=== PATIENT | male | born 1990 | race Caucasian/White ===

== ENCOUNTER 2020-10-03 20:48 | Emergency (ER) | payer OTHER ==
[~2020-10-03] VITALS: Ht 188 cm; Wt 120.0 kg
--- NOTE | 2020-10-03 20:59 | PHYS DOC ---
Adult General Chief Complaint Chief Complaint: KNEE INJURY HPI HPI This is a pleasant 30-year-old male with a history of knee injury some years ago from a fall present to the emergency department complaint of right knee pain. Patient states that he started noticing right knee pain 1.5 weeks ago following a hiking. Patient states that he has been caring additional weights to carry backpack as well as baby strap to carry the baby during hiking. This has taken a toll on his right knee. He is having increasing pain to his right knee. Pain is sharp and achy in nature. At times it catches and clicks. He would prefer to use elevator over stairs as it will cause significant pain walking up. Flexion of the knee causes additional pain. However he is able to bend his knee completely. Patient has seen at the urgent care last Wednesday about 4 days ago. He had an x-ray done which was negative for any fracture. Patient also reports that his pain is better in the morning. It is worse after activity and exercise. Review of Systems Review of Systems Constitutional: Denies fever or chills [] Eyes: Denies change in visual acuity, redness, or eye pain [] HENT: Denies nasal congestion or sore throat [] Respiratory: Denies cough or shortness of breath [] Cardiovascular: No additional information not addressed in HPI [] GI: Denies abdominal pain, nausea, vomiting, bloody stools or diarrhea [] : Denies dysuria or hematuria [] Musculoskeletal: Right knee pain Integument: Denies rash or skin lesions [] Neurologic: Denies headache, focal weakness or sensory changes [] Endocrine: Denies polyuria or polydipsia [] All other systems were reviewed and found to be within normal limits, except as documented in this note. Physical Exam Physical Exam Constitutional: Well developed, well nourished, no acute distress, non-toxic appearance. [] HENT: Normocephalic, atraumatic, bilateral external ears normal, oropharynx moist, no oral exudates, nose normal. [] Eyes: PERRLA, EOMI, conjunctiva normal, no discharge. [] Neck: Normal range of motion, no tenderness, supple, no stridor. [] Cardiovascular:Heart rate regular rhythm, no murmur [] Lungs & Thorax: Bilateral breath sounds clear to auscultation [] Abdomen: Bowel sounds normal, soft, no tenderness, no masses, no pulsatile masses. [] Skin: Warm, dry, no erythema, no rash. [] Back: No tenderness, no CVA tenderness. [] Extremities: Minimal tenderness upon palpation over the right anterior medial joint line. Flexion extension. However, patient feels something catching/locking during flexion extension. Suspect meniscal/ligamentous injury. Neurologic: Alert and oriented X 3, normal motor function, normal sensory function, no focal deficits noted. [] Psychologic: Affect normal, judgement normal, mood normal. [] EKG EKG [] Radiology/Procedures Radiology/Procedures [] Heart Score C/O Chest Pain: N/A Risk Factors: Risk Factors: DM, Current or recent (<one month) smoker, HTN, HLP, family history of CAD, obesity. Risk Scores: Risk Factors: DM, Current or recent (<one month) smoker, HTN, HLP, family history of CAD, obesity. Course & Med Decision Making Course & Med Decision Making Since patient had studies done at the urgent care knee x-ray, this was deferred. Discussed at length patient about the treatment options. The following is the instruction that was given to the patient: Your right knee pain likely secondary to meniscal injury particularly anterior horn of the right medial meniscus. You likely also have ligamentous injury. MRI is superior chest to determine soft tissue problems. Please see your primary care provider for further evaluation particularly for physical therapy and possible need for MRI. You may apply warm compression for comfort and soothing. You likely will need physical therapy with your primary care provider take your anti-inflammatory and muscle relaxer as prescribed. Minimize over activity or over usage to the right knee. May use knee immobilizer/knee brace during heavy ambulation and may use Silverio wrap to the right knee during light ambulation. Dragon Disclaimer Dragon Disclaimer This electronic medical record was generated, in whole or in part, using a voice recognition dictation system. Departure Departure: Impression: Primary Impression: Mechanical pain of right knee Disposition: 07 LEFT AWOL/ELOPED Admitting Physician: Other Condition: GOOD Referrals: MARISA URBINA-KATINA (PCP) Patient Instructions: Combined Knee Ligament Sprain-SportsMed Additional Instructions: Your right knee pain likely secondary to meniscal injury particularly anterior horn of the right medial meniscus. You likely also have ligamentous injury. MRI is superior chest to determine soft tissue problems. Please see your primary care provider for further evaluation particularly for physical therapy and possible need for MRI. You may apply warm compression for comfort and soothing. You likely will need physical therapy with your primary care provider take your anti-inflammatory and muscle relaxer as prescribed. Minimize over activity or over usage to the right knee. May use knee immobilizer/knee brace during heavy ambulation and may use Silverio wrap to the right knee during light ambulation. Scripts Cyclobenzaprine Hcl (CYCLOBENZAPRINE HCL) 5 Mg Tablet 1 TAB PO TID for pain for 10 Days, #30 TAB Prov: JANAK VACA MD 10/03/20 Naproxen (NAPROXEN) 500 Mg Tablet 1 TAB PO BID for pain for 20 Days, #40 TAB 0 Refills Prov: JANAK VACA MD 10/03/20 JANAK VACA MD Oct 03, 2020 20:59
[2020-10-03] MEDS ORDERED: CYCL5TAB PO (23:03)
[2020-10-03] MEDS ORDERED: NAPR-514 PO (23:03)
[2020-10-03 23:13] VITALS: BP 145/93
== END 2020-10-03 23:11 | disposition left against medical advice (07) ==
LOC: ER 20:48
DX: M25.561 Pain in right knee (principal); W18.39XA Other fall on same level, initial encounter; Y93.89 Activity, other specified; Y92.89 Other specified places as the place of occurrence of the external cause; Y99.8 Other external cause status
CPT/HCPCS: 99283

== ENCOUNTER 2021-03-23 06:24 | Emergency (ER) | payer OTHER ==
[~2021-03-23] VITALS: Ht 182.9 cm; Wt 115.9 kg
[~2021-03-23 06:24] MED LIST: CYCL5TAB PO; NAPR-514 PO
[2021-03-23] MEDS ORDERED: KETOROLAC 30 MG/ML VIAL. IVP ONE (06:45)
[2021-03-23] MEDS ORDERED: IV NORMAL SALINE 1,000ML 1,000 ML IV ONE (06:45)
[2021-03-23] MEDS ORDERED: ONDANSETRON PF 4 MG/2 ML VIAL. IVP ONE (06:45)
--- NOTE | 2021-03-23 06:45 | PHYS DOC ---
Past History Past Medical History: No Pertinent History Past Surgical History: Other Additional Past Surgical Histo: rt knee Alcohol Use: None General Adult EDM: Chief Complaint: NAUSEA/VOMITING/DIARRHEA HPI: HPI: 30-year-old male presents with nausea, vomiting, diarrhea. The patient started having vomiting overnight. He has had 4-5 episodes of both vomiting and diarrhea in the last few hours. He is concerned about dehydration. He is unable to even drink a little bit of water. He denies significant abdominal pain at this time. He had a "knot in the middle of my stomach" is improved at this time. He denies fever or chills. Review of Systems: Review of Systems: Constitutional: Denies fever or chills Eyes: Denies change in visual acuity HENT: Denies nasal congestion or sore throat Respiratory: Denies cough or shortness of breath Cardiovascular: Denies chest pain or edema GI: Nausea, vomiting, diarrhea : Denies dysuria Musculoskeletal: Denies back pain or joint pain Integument: Denies rash Neurologic: Denies headache, focal weakness or sensory changes Endocrine: Denies polyuria or polydipsia Lymphatic: Denies swollen glands Psychiatric: Denies depression or anxiety Current Medications: Current Meds: Current Medications Medications (Trade) Dose Ordered Sig/Maggie Start Time Stop Time Status Last Admin Dose Admin Ondansetron HCl (Zofran) 4 mg 1X ONCE 03/23/21 06:45 03/23/21 06:46 Sodium Chloride 1,000 ml @ 1,000 mls/hr 1X ONCE 03/23/21 06:45 03/23/21 07:44 Allergies: Allergies: Allergies Coded Allergies Type Severity Reaction Last Updated Verified No Known Drug Allergies 10/03/20 No Physical Exam: PE: Constitutional: Well developed, well nourished, obese, no acute distress, non- toxic appearance. [] HENT: Normocephalic, atraumatic, bilateral external ears normal, oropharynx moist, no oral exudates, nose normal. [] Eyes: PERRLA, EOMI, conjunctiva normal, no discharge. [] Neck: Normal range of motion, no tenderness, supple, no stridor. [] Cardiovascular: Heart rate regular rhythm, no murmur [] Lungs & Thorax: Bilateral breath sounds clear to auscultation [] Abdomen: Bowel sounds normal, soft, no tenderness, no masses, no pulsatile masses. [] Skin: Warm, dry, no erythema, no rash. [] Back: No tenderness, no CVA tenderness. [] Extremities: No tenderness, no cyanosis, no clubbing, ROM intact, no edema. [] Neurologic: Alert and oriented X 3, normal motor function, normal sensory function, no focal deficits noted. [] Psychologic: Affect normal, judgement normal, mood normal. [] EKG: EKG: [] Radiology/Procedures: Radiology/Procedures: [] Heart Score: C/O Chest Pain: N/A Risk Factors: Risk Factors: DM, Current or recent (<one month) smoker, HTN, HLP, family history of CAD, obesity. Risk Scores: Score 0 - 3: 2.5% MACE over next 6 weeks - Discharge Home Score 4 - 6: 20.3% MACE over next 6 weeks - Admit for Clinical Observation Score 7 - 10: 72.7% MACE over next 6 weeks - Early Invasive Strategies Course & Med Decision Making: Course & Med Decision Making Pertinent Labs and Imaging studies reviewed. (See chart for details) The patient's labs are unremarkable except for slightly elevated white count. The patient states feeling dry but he does not look significantly dehydrated clinically. I have treated him with a liter normal saline, 30 mg Toradol, and 4 mg of Zofran. I will discharge him with prescription for Zofran. He is stable for discharge at this time. [] Dragon Disclaimer: Dragon Disclaimer: This electronic medical record was generated, in whole or in part, using a voice recognition dictation system. Departure Departure: Impression: Primary Impression: Viral gastroenteritis Disposition: HOME / SELF CARE / HOMELESS Condition: STABLE Referrals: MARISA URBINA [employer]- (PCP) Patient Instructions: Viral Gastroenteritis, [id number] Scripts Ondansetron (ONDANSETRON ODT) 4 Mg Tab.rapdis 1 TAB PO PRN Q6-8HRS PRN for VOMITING, #16 TAB Prov: FAB SALEEM DO 03/23/21 FAB SALEEM DO Mar 23, 2021 06:45
[2021-03-23 08:20] LABS: BASO % 0 % (0-3); EOS % 0 % (0-3); HEMATOCRIT 49.8 % (39.0-53.0); LYMPH # 0.6 x10^3/uL (1.0-4.8); LYMPH % 4 % (24-48); MEAN CORPUSCULAR HEMOGLOBIN 29 pg (25-35); MEAN CORPUSCULAR HGB CONC 34 g/dL (31-37); MEAN CORPUSCULAR VOLUME 85 fL (79-100); MONO # 0.6 x10^3/uL (0.0-1.1); MONO % 4 % (0-9); NEUT # 12.3 x10^3uL (1.8-7.7); NEUT % 91 % (31-73); PLATELET COUNT 235 x10^3/uL (140-400); RED BLOOD COUNT 5.83 x10^6/uL (4.30-5.70); RED CELL DISTRIBUTION WIDTH 13.1 % (11.5-14.5); WHITE BLOOD COUNT 13.5 x10^3/uL (4.0-11.0)
[2021-03-23 08:27] LABS: CALCIUM 9.2 mg/dL (8.5-10.1); CREATININE 1.1 mg/dL (0.7-1.3); GFR 77.6; POTASSIUM 3.8 mmol/L (3.5-5.1)
[2021-03-23 08:33] LABS: ALBUMIN 4.4 g/dL (3.4-5.0); ALBUMIN/GLOBULIN RATIO 1.2 (1.0-1.7); TOTAL BILIRUBIN 1.8 mg/dL (0.2-1.0); TOTAL PROTEIN 8.1 g/dL (6.4-8.2)
[2021-03-23] MEDS ORDERED: ONDA4TAB12 PO (08:44)
[2021-03-23 08:51] VITALS: BP 130/81
== END 2021-03-23 08:53 | disposition home or self-care (01) ==
LOC: ER 06:24
DX: A08.4 Viral intestinal infection, unspecified (principal)
CPT/HCPCS: 36415; 80053; 85025; 96361; 96374; 96375; 99284; J1885; J2405; J7030